=== PATIENT | male | born 1960 | race Two or more races ===

== ENCOUNTER 2020-06-24 18:58 | Emergency (ER) | payer OTHER ==
[~2020-06-24] VITALS: Ht 172.7 cm; Wt 77.3 kg
[2020-06-24 18:59] VITALS: BP 180/95
[2020-06-24] MEDS ORDERED: AMLO-257 PO (19:31)
[2020-06-24] MEDS ORDERED: ATEN-73 PO (19:31)
[2020-06-24] MEDS ORDERED: LISI-660 PO (19:31)
== END 2020-06-24 21:00 | disposition left against medical advice (07) ==
LOC: EMS 19:02
DX: J02.9 Acute pharyngitis, unspecified (principal); R05 Cough; R50.9 Fever, unspecified; I10 Essential (primary) hypertension; Z20.828 Contact with and (suspected) exposure to other viral communicable diseases
CPT/HCPCS: Z7502